=== PATIENT | male | born 1960 | race Caucasian/White ===

== ENCOUNTER → 2019-03-21 | Outpatient (CLI) | payer BC ==
[~2019-03-21] MED LIST: CATHETER FLUSH 10 ML SYR IV PRN; REGADENOSON 0.4 MG/5 ML SYR (LEXISCAN) IV ONE
[2019-03-21 08:08] VITALS: BP 148/92
[2019-03-21 08:11] VITALS: BP 110/87
--- NOTE | 2019-03-23 12:07 | Cardiology Stress Test Report ---
Stress Test Report Type of NM Stress Test: Test Type: LEXISCAN 0.4MG/5ML Date of Procedure/Referring: Date of Procedure: Mar 21, 2019 PCP Salas De Santiago MD Admitting Physician Salas De Santiago MD Indications: Chest pain Baseline Blood Pressure: Blood Pressure Systolic: 110 Blood Pressure Diastolic: 87 Baseline EKG: Baseline EKG: Sinus rhythm Summary & Conclusion: Summary: The patient was brought to the stress lab after informed consent was taken. Stress test was performed according to the Lexiscan protocol. 0.4 mg of IV Lexiscan was given. 10.98 mCi of Myoview were given for rest imaging and 30.1 mCi of Myoview given for stress imaging. Transient ischemic dilatation score 0.97, EF 64 percent. Normal wall motion. Evidence of moderate anterior apical reversible defect. SSS 12, SRS 1, SDS 11. Conclusion: Normal LV function with no wall motion abnormalities. Anterior apical ischemia, coronary angiography is recommended Alesha NORRIS MD Mar 23, 2019 12:07
== END ==
LOC: CARD 06:33
PROVIDERS: ATTEND Pediatrics
DX: I25.89 Other forms of chronic ischemic heart disease (principal); I20.8 Other forms of angina pectoris
CPT/HCPCS: 78452; 93017

== ENCOUNTER → 2022-05-16 | Outpatient (CLI) | payer BC ==
[~2022-05-16] MED LIST changes: -CATHETER FLUSH 10 ML SYR IV PRN; +CATHETER FLUSH 10 ML SYR IVP PRN; -REGADENOSON 0.4 MG/5 ML SYR (LEXISCAN) IV ONE
--- NOTE | 2022-05-16 14:48 | Diagnostic Imaging Report ---
HEPATOBILIARY SCAN DATE: May 16, 2022. INDICATION: 62-year-old male, right upper quadrant abdominal pain. PROCEDURE: 5.21 mCi of Tc-99m Choletech was administered intravenously and serial anterior planar images over the liver and upper abdomen were obtained. FINDINGS: There is homogenous activity throughout the liver with good clearance of background activity. This indicates good hepatocellular function. Biliary tree activity is seen at 10 minutes. The gallbladder is seen at 10 minutes. There is no enterogastric reflux. The biliary tree is patent. There is no evidence of acute cholecystitis. CCK was administered. Gallbladder ejection fraction was calculated to be 78%. IMPRESSION: Normal hepatobiliary scan. No evidence of acute or chronic cholecystitis. Dictated by: Dictated on workstation # [id number]
== END ==
LOC: CARD 12:00
PROVIDERS: ATTEND Nurse Practitioner Family
DX: R10.11 Right upper quadrant pain (principal)
CPT/HCPCS: 78227; A9537